=== PATIENT | female | born 1975 | race African-American/Black ===

== ENCOUNTER 2017-07-12 18:59 | Emergency (ER) | payer MEDICAID, OTHER ==
[~2017-07-12] VITALS: Ht 167.6 cm; Wt 50.0 kg
[2017-07-12 19:00] VITALS: BP 133/89
[2017-07-12] MEDS ORDERED: LIDOCAINE 2%, 20ML SQ ONE (19:30)
[2017-07-12] MEDS ORDERED: DIPH,PERTUSS(ACELL),TET VAC/PF 0.5 ML IM-VACC ONE ×2 (19:30→19:32)
[2017-07-12] MEDS ORDERED: BACITRACIN ZINC OINT 500U/GM, 0.9 GM ONE (19:32)
== END 2017-07-12 19:59 | disposition home or self-care (01) ==
LOC: ED 19:53
DX: S81.011A Laceration without foreign body, right knee, initial encounter (principal); S91.311A Laceration without foreign body, right foot, initial encounter; Z88.1 Allergy status to other antibiotic agents; Z88.8 Allergy status to other drugs, medicaments and biological substances; W18.39XA Other fall on same level, initial encounter; Y93.89 Activity, other specified; Y92.89 Other specified places as the place of occurrence of the external cause; Y99.8 Other external cause status
CPT/HCPCS: 12001; 90471; 90715

== ENCOUNTER 2019-03-17 15:44 | Emergency (ER) | payer SELFPAY ==
[~2019-03-17] VITALS: Ht 167.6 cm; Wt 75.0 kg
[2019-03-17 15:57] VITALS: BP 157/83
[2019-03-17] MEDS ORDERED: LITHIUM (16:14)
[2019-03-17] MEDS ORDERED: LATUDA (16:14)
[2019-03-17] MEDS ORDERED: HYDROcodone/APAP 5/325 TABLET ONE (16:28)
[2019-03-17] MEDS ORDERED: HYDROcodone/APAP 5/325 TABLET PO ONE (16:30)
== END 2019-03-17 16:36 | disposition home or self-care (01) ==
LOC: ED 16:30
DX: K02.9 Dental caries, unspecified (principal); K08.89 Other specified disorders of teeth and supporting structures; F17.200 Nicotine dependence, unspecified, uncomplicated
CPT/HCPCS: 99283